=== PATIENT | female | born 1940 | race Caucasian/White ===

== ENCOUNTER 2017-09-09 08:53 | Day surgery (SDC) | payer MEDICARE, OTHER ==
[~2017-09-09] VITALS: Ht 170.2 cm; Wt 88.3 kg
[2017-09-09] MEDS ORDERED: FENTANYL PF 100 MCG/2ML ONE ×2 (09:25→11:06)
[2017-09-09] MEDS ORDERED: ONDANSETRON ODT 8 MG ONE ×2 (09:25→11:06)
[2017-09-09] MEDS ORDERED: MIDAZOLAM 1 MG/ML, 2ML ONE ×2 (09:25→11:06)
[2017-09-09 09:30] VITALS: BP 147/85
[2017-09-09] MEDS ORDERED: LACTATED RINGERS 1,000 ML IV SCH (09:30)
[2017-09-09] MEDS ORDERED: PROPOFOL 50 ML ONE (09:30)
[2017-09-09] MEDS ORDERED: ALBUTEROL SULFATE 2.5 MG/3 ML NPPB PRN (10:30)
[2017-09-09] MEDS ORDERED: hydrALAzine 20 MG/ML, 1ML IV PRN (10:30)
[2017-09-09] MEDS ORDERED: MEPERIDINE/PF 25MG/0.5ML IVPush PRN (10:30)
[2017-09-09] MEDS ORDERED: OXYcodone 5 MG/5 ML ORAL.SOL UDC PO PRN (10:30)
[2017-09-09] MEDS ORDERED: FENTANYL PF 100 MCG/2ML IV PRN (10:30)
[2017-09-09] MEDS ORDERED: morphine SULFATE 10 MG/ML, 1ML IV PRN (10:30)
[2017-09-09] MEDS ORDERED: LABETALOL 5MG/ML, 20ML IV PRN (10:30)
[2017-09-09] MEDS ORDERED: ACETAMINOPHEN 325 MG TABLET PO PRN (10:30)
[2017-09-09] MEDS ORDERED: PROMETHAZINE 25 MG/ML, 1ML IV PRN (10:30)
[2017-09-09] MEDS ORDERED: PROPOFOL 10 MG/ML, 20ML ONE (11:06)
[2017-09-09] MEDS ORDERED: DEXAMETHASONE 4 MG/ML, 1ML ONE ×2 (11:06→11:13)
== END 2017-09-09 13:15 ==
LOC: OUT 08:53
PROVIDERS: ATTEND Internal Medicine Gastroenterology
DX: K63.89 Other specified diseases of intestine (principal); J45.909 Unspecified asthma, uncomplicated; I10 Essential (primary) hypertension; E03.9 Hypothyroidism, unspecified; Z90.710 Acquired absence of both cervix and uterus; Z98.890 Other specified postprocedural states; Z79.82 Long term (current) use of aspirin; Z88.1 Allergy status to other antibiotic agents; Z88.8 Allergy status to other drugs, medicaments and biological substances; Z87.891 Personal history of nicotine dependence
CPT/HCPCS: 45341; 93005; J1100; J2250; J2704; J3010; J7120; Q0162

== ENCOUNTER 2018-11-30 06:13 | Day surgery (SDC) | payer MEDICARE ==
[~2018-11-30] VITALS: Ht 170.2 cm; Wt 85.7 kg
[~2018-11-30 06:13] MED LIST: ALBU8.5H8 INH; AMOX-367 PO; ASPI-496 PO; CALC1CAP8 PO; DILT180C72 PO; ESTR0.6246 PO; ESTR10TA4 VG; FEXO-64 PO; FLUT15.815 NS; FLUT1BLS INH; GLUC1TAB91 PO; HYDR25TA6 PO; LEVO150T5 PO; PANT40TA3 PO; POTA20PA31 PO; RED600TA PO; SOLI5TAB2 PO; TRIA60LO10 TD
[2018-11-30] MEDS ORDERED: LACTATED RINGERS 1,000 ML IV SCH (06:59)
[2018-11-30 07:25] VITALS: BP 144/81
[2018-11-30] MEDS ORDERED: FENTANYL PF 100 MCG/2ML IV PRN (08:30)
[2018-11-30] MEDS ORDERED: ONDANSETRON 2MG/ML, 2ML IVPush PRN (08:30)
[2018-11-30] MEDS ORDERED: KETOROLAC 30 MG/1 ML IV PRN (08:30)
[2018-11-30] MEDS ORDERED: PROMETHAZINE 25 MG/ML, 1ML IV PRN (08:30)
[2018-11-30] MEDS ORDERED: HYDROmorphone 1 MG/ML, 1ML INJ IV PRN (08:30)
[2018-11-30] MEDS ORDERED: OXYcodone 5 MG/5 ML ORAL.SOL UDC PO PRN (08:30)
[2018-11-30] MEDS ORDERED: LABETALOL 5MG/ML, 20ML IV PRN (08:30)
[2018-11-30] MEDS ORDERED: hydrALAzine 20 MG/ML, 1ML IV PRN (08:30)
[2018-11-30] MEDS ORDERED: METOCLOPRAMIDE 5 MG/ML, 2ML IV PRN (08:30)
[2018-11-30] MEDS ORDERED: ALBUTEROL SULFATE 2.5 MG/3 ML NPPB PRN (08:30)
[2018-11-30] MEDS ORDERED: MEPERIDINE/PF 25MG/0.5ML IVPush PRN (08:30)
== END 2018-11-30 09:10 | disposition home or self-care (01) ==
LOC: OUT 06:13
PROVIDERS: ATTEND Surgery
DX: K62.7 Radiation proctitis (principal); I10 Essential (primary) hypertension; E03.9 Hypothyroidism, unspecified; J45.909 Unspecified asthma, uncomplicated; Z72.89 Other problems related to lifestyle; Z79.890 Hormone replacement therapy; Z79.82 Long term (current) use of aspirin; Z79.899 Other long term (current) drug therapy; Z85.048 Personal history of other malignant neoplasm of rectum, rectosigmoid junction, and anus; Z87.891 Personal history of nicotine dependence; Z88.2 Allergy status to sulfonamides; Z88.8 Allergy status to other drugs, medicaments and biological substances; Z91.048 Other nonmedicinal substance allergy status; Z92.21 Personal history of antineoplastic chemotherapy; Z90.710 Acquired absence of both cervix and uterus; Z90.49 Acquired absence of other specified parts of digestive tract; Z80.3 Family history of malignant neoplasm of breast; Z82.49 Family history of ischemic heart disease and other diseases of the circulatory system; Z83.6 Family history of other diseases of the respiratory system
CPT/HCPCS: 45330; J7120